=== PATIENT | female | born 1985 | race Caucasian/White ===

== ENCOUNTER 2018-10-13 19:52 | Emergency (ER) | payer OTHER ==
[~2018-10-13] VITALS: Ht 157.5 cm; Wt 56.8 kg
[~2018-10-13 19:52] MED LIST: ADDE1TAB20 PO; ADDE20CA3 PO; ARIP10TAB PO; ARIP15TAB PO; BUSP10TA PO; DIPH50CA PO; QUET1TAB8 PO; SERT50TA PO; TRAZ10TA PO; TRAZO50TA PO; ZYPR5TAB2 PO
[2018-10-13] MEDS ORDERED: VICO5TAB16 PO (20:00)
[2018-10-13] MEDS ORDERED: PERCOCET 5MG/325MG TAB PO ONE (20:15)
[2018-10-13] MEDS ORDERED: NORCOTAB PO (20:45)
[2018-10-13 21:00] VITALS: BP 125/76
[2018-10-13] MEDS ORDERED: NORCO 5/325MG TABLET (BULK FOR ED) PO ONE (21:00)
--- NOTE | 2018-10-15 09:01 | REP ---
LEFT RIB SERIES: Four views of the left ribs performed. There is no fracture or bone lesion. An accompanying view of the chest demonstrates no acute infiltrate, pneumothorax or pleural effusion. The heart and mediastinum are within normal limits. IMPRESSION: Negative left rib series. Electronically Signed by Kai Murillo MD 10/15/2018 06:44 P
== END 2018-10-13 21:20 | disposition home or self-care (01) ==
LOC: M ED 19:52
DX: S20.212A Contusion of left front wall of thorax, initial encounter (principal); W19.XXXA Unspecified fall, initial encounter; Y92.410 Unspecified street and highway as the place of occurrence of the external cause; Y93.9 Activity, unspecified; Y99.9 Unspecified external cause status

== ENCOUNTER 2018-10-15 08:38 | Emergency (ER) | payer OTHER ==
[~2018-10-15] VITALS: Ht 157.5 cm; Wt 56.8 kg
[~2018-10-15 08:38] MED LIST changes: +NORCOTAB PO; +VICO5TAB16 PO
[2018-10-15 10:27] VITALS: BP 111/67
[2018-10-15] MEDS ORDERED: NORCO, ANEXSIA 5/325MG TABLET (HYDROcodone/ACETAMINOPHEN) PO ONE (10:30)
--- NOTE | 2018-10-15 12:20 | REP ---
LEFT RIB SERIES: Four views of the left ribs performed. There is a slightly displaced fracture of the lateral aspect of the left 6th rib. No other fracture or bone lesion is seen. An accompanying view of the chest demonstrates no pneumothorax, acute infiltrate, or pleural effusion. IMPRESSION: Left 6th rib fracture. Electronically Signed by Kai Murillo MD 10/15/2018 07:03 P
== END 2018-10-15 10:48 | disposition home or self-care (01) ==
LOC: M ED 08:38 → EDBD 08:38 → M ED 10:48
DX: S22.32XA Fracture of one rib, left side, initial encounter for closed fracture (principal); W00.9XXA Unspecified fall due to ice and snow, initial encounter; Y92.89 Other specified places as the place of occurrence of the external cause; F33.9 Major depressive disorder, recurrent, unspecified; F41.9 Anxiety disorder, unspecified